=== PATIENT | female | born 1945 | race Caucasian/White ===

== ENCOUNTER 2018-04-17 16:17 | Emergency (ER) | payer MEDICARE ==
[2018-04-17] MEDS ORDERED: Adacel (T-DAP) 0.5 ML SYRINGE ONE (16:38)
[2018-04-17] MEDS ORDERED: Acetaminophen/Codeine 30-300mg Tablet ONE (16:39)
--- NOTE | 2018-04-17 19:04 | CT ---
CT LUMBAR SPINE NONCONTRAST: 04/17/18 HISTORY: 72-year-old female with posttraumatic low back pain. COMPARISON: None. FINDINGS: No scoliosis. There is a broad, moderate depression of the inferior end plate of T12 resulting in ant erior wedge compression deformity of T12, with maximum of approximately 20 to 50% loss of height. No bony retropulsion. No linear fracture lucency or edema in the prevertebral space. No central or neural foraminal stenosis at T12-L1. At L3-4, there is a mild disc bulge and mild ligamentum flavum thickening, causing mild central steno sis. There is mild to moderate right neural foraminal stenosis and moderate left neural foraminal bren nosis. At L4-5, there is mild to moderate right neural foraminal stenosis and no central stenosis, and no si gnificant left neural foraminal stenosis. L5 is partially sacralized, with bilateral enlarged transverse processes. The right enlarged L5 trans verse process is fused with the right S1 ala. There is an assimilation joint between the left L5 fernandes sverse process and the left sacral ala. There is no high grade central spinal canal stenosis at any level. No hydronephrosis of bilateral kid neys. There is vacuum disc phenomenon without significant joint space narrowing, at L4-5. There is a mild d iffuse disc bulge at that location. There are mild disc bulges at other levels. IMPRESSION: 1. Old compression fracture of the inferior end plate of T12. 2. Transitional level: Partially sacralized L5. 3. Modest degenerative disc changes at L4-5. 4. Mild and moderate neural foraminal stenosis. 5. No high grade central spinal canal stenosis at any level. 6. No acute fracture. POS: [facility]
== END 2018-04-17 18:17 | disposition home or self-care (01) ==
LOC: NAV ERS 16:17
DX: S30.0XXA Contusion of lower back and pelvis, initial encounter (principal); S50.02XA Contusion of left elbow, initial encounter; S50.01XA Contusion of right elbow, initial encounter; Z23 Encounter for immunization; W18.30XA Fall on same level, unspecified, initial encounter
CPT/HCPCS: 72131; 90471; 90715